=== PATIENT | male | born 1955 | race Caucasian/White ===

== ENCOUNTER → 2025-02-03 07:01 | Outpatient (REF) | payer MEDICARE, OTHER, SELFPAY | LOC: MRI 07:01 | PROVIDERS: ATTENDING PHYSICIAN Nurse Practitioner Family; FAMILY PHYSICIAN Family Medicine | DX: M54.51 Vertebrogenic low back pain (principal); M54.42 Lumbago with sciatica, left side | CPT/HCPCS: 72148 ==

== ENCOUNTER 2025-05-01 09:32 | Emergency (ER) | payer MEDICARE, OTHER, SELFPAY ==
[2025-05-01 09:34] VITALS: BP 183/109
[2025-05-01 10:02] VITALS: BMI 35.0
--- NOTE | 2025-05-01 10:15 | ED.GENMED ---
History of Present Illness
General
Chief Complaint: Musculo-Skeletal Complaint
Source: patient
Exam Limitations: none
Time Seen by Provider: 05/01/25 10:13
Nursing documentation reviewed up to this point in time: agreed with
History of Present Illness
History of Present Illness:
Patient is a 70-year-old male with history of hypertension, hyperlipidemia who presents to the emergency department for evaluation of pain and swelling of right lower extremity. Patient reports dull pain in his posterior thigh/popliteal area over
the past 2 days which seemed to acutely worsen as he stepped off a tractor on Thursday. He now has pain in his posterior thigh radiating down into his right calf. He also noticed swelling of his RLE. Pain exacerbated by both certain movements as
well as weightbearing. He does feel some degree of weakness in his right lower leg.
Patient denies any bony tenderness in right lower extremity. No right knee or right hip pain. He denies any numbness/tingling in right lower extremity. No fevers, chest pain, or shortness of breath.
He has been utilizing a cane at home to assist with weightbearing over the past few days.
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
Past History
Past History
ED Past Medical History: Other (GI bleeding)
Social History
Tobacco: Non-smoker
Personal:
Review of Systems
Review of Systems
Allergies reviewed?: Yes
All Other Systems: ROS reviewed and negative except as documented in HPI and ROS
Phy Exam
Physical Exam
Physical Exam:
Vitals: Hypertensive, otherwise vital signs are stable. Afebrile
General: Patient is well appearing, no acute distress
Skin: Warm and dry, no rashes or lesions
Head: Normocephalic, atraumatic
Throat: Protecting airway
Neck: Normal ROM, no cervical spine tenderness
Cardiac: Regular rate
Pulm: No apparent respiratory distress
Abdomen: Nondistended
Extremities: Mild nonpitting edema of RLE from right knee extending down to right ankle without any area of skin erythema or warmth. No bony tenderness of obvious deformity. Pain w/ flexion and extension of left knee. No obvious effusion of right
knee or joint laxity. There is a palpable mass in right popliteal space without any fluctuance or focal tenderness. RLE neurovascularly intact w/ palpable distal pulses.
Neuro: Grossly intact
Psychiatric: Normal affect.
Course
Orders/Labs/Results
Orders:
Orders
05/01/25 10:37
US Legs, Right [US Periph Venous LOWER Ext RT] Urgent
Comment: hx Manzanares cyst
Reason For Exam: RLE pain/swelling
05/01/25 12:38
Satya Wrap Right-Treatment ONCE
Vital Signs
Initial and Last Documented VS:
Initial Vital Signs
Temp Pulse Resp BP Pulse Ox
98.5 F 68 18 183/109 98
05/01/25 09:34 05/01/25 09:34 05/01/25 09:34 05/01/25 09:34 05/01/25 09:34
Last Documented Vital Signs
Temp Pulse Resp BP Pulse Ox
98.5 F 56 18 165/94 98
05/01/25 09:34 05/01/25 12:19 05/01/25 12:19 05/01/25 12:19 05/01/25 10:48
MDM/Problems Addressed
Differential Diagnosis Includes:
Not limited to: Manzanares's cyst, DVT, hamstring strain, ligamentous injury, etc.
MDM/Problems Addressed:
70-year-old male with gradual onset pain in right thigh extending down to right calf with worsening swelling over the past 2 days. Symptoms did worsen acutely after stepping off of a tractor a few days ago. Pain worse with movement and
weight-bearing. No numbness/ tingling, fevers, chest pain, shortness of breath.
Vitals and physical exam as above.
Non-pitting edema of right lower extremity noted from knee extending down to right ankle. RLE neurovascular intact without obvious deformity or bony tenderness. No erythema, warmth or evidence of cellulitis. Small palpable mass noted in right
popliteal space however nontender.
Differential broad however given palpable mass, suspect possible Manzanares cyst. Other possibilities would be hamstring muscle strain, ligamentous injury. Will rule out DVT with ultrasound. Lower suspicion for infectious process. No bony tenderness to
indicate fracture.
Update: ultrasound without evidence of DVT however does note Manzanares cyst in right popliteal space. This is likely contributing to pain and swelling in RLE. Again � no evidence of associated infection. He may also have sustained a hamstring muscle
stream. However � will advise supportive care, including compression, ice, elevation, tylenol for pain. He has a cane/walker to assist with ambulation. Close return precuations discussed. Patient comfortable with plan he will follow up with PCP.
Chronic conditions affecting care:
Hypertension
Acute Exacerbation and/or Progression of Chronic Illness:
Acutely hypertensive
*Radiology
Radiology exam reviewed: radiology read reviewed
*Pulse Oximetry
SaO2: 98
Oxygen Mode of Delivery: Room air
Patient hypoxic: no
*EKG
Interpreted by ED Provider?: NA
*Wildlife Science Professor Interpretation
Rate: Wildlife Science Professor- N/A
*Critical Care Note
Total Time (30-74mins, 75-104mins- exclusive of procedures): Not Applicable
ED Attending Note
-
Portions of this chart may have been created with voice recognition software.� Occasional wrong word or��sound alike� substitutions may have occurred due to the inherent limitations of voice recognition software.
Discharge Plan
Departure
Patient Disposition: Home (Routine Discharge)
Date of Disposition: 05/01/25
Time of Disposition: 12:38
Patient with high blood pressure during this ER visit?: Yes
Discharge Problem:
Manzanares cyst
Instructions: Manzanares's Cyst (DC)
Prescriptions:
No Action
lorazepam 0.5 MG tablet
0.5 mg PO PRN PRN (Reason: anxiety)
lisinopril 30 MG tablet
30 mg PO HS
naproxen sodium [Aleve] 220 MG tablet
220 mg PO PRN PRN (Reason: pain)
Referrals:
Wanda Leon MD [Family Provider, [facility]] - Follow up in 1 week
Activity Restrictions/Additional Instructions:
RETURN TO THE EMERGENCY DEPARTMENT WITH ANY PERSISTENT/WORSENING PAIN, INCREASING SWELLING OF RIGHT LOWER EXTREMITY, NUMBNESS/TINGLING OR WEAKNESS, FEVER OR ANY SIGNS OF INFECTION, OR ANY OTHER CONCERNS
- As discussed�your ultrasound showed no evidence of a DVT. However�there was noted to be a Manzanares's cyst which is cause of your symptoms today.
- You can keep your right knee wrapped with an Satya bandage. Continue to ice and elevate your right leg. Take Tylenol and/or Motrin as needed for pain. Continue to use cane/walker as needed for ambulation
- Please follow-up with your primary care provider for further evaluation/management and to ensure that your symptoms improve
Monitor your symptoms closely and return to the emergency department with any acute worsening/new symptoms or any other concerns
Interventions
Interventions:
*Risk Screen - Suicide Last Done: 05/01/25 09:34
*General Assessment Last Done: 05/01/25 10:04
*Neglect/Abuse Screening Last Done: 05/01/25 09:34
*ED- Fall Risk Assessment Last Done: 05/01/25 10:02
*ED COVID-19 Vaccine History Last Done: 05/01/25 10:02
*Nursing Disposition Last Done: 05/01/25 12:59
ED-Musculoskeletal Assessment Last Done: 05/01/25 10:04
Discharge Date and Time
Discharge Date/Time: 05/01/25 13:00
Print Language: SAMI
[2025-05-01 10:43] VITALS: BP 164/102
[2025-05-01 12:19] VITALS: BP 165/94
== END 2025-05-01 13:00 | disposition home or self-care (01) ==
LOC: EMR 09:32
PROVIDERS: EMERGENCY PHYSICIAN Emergency Medicine; FAMILY PHYSICIAN Family Medicine
DX: M71.21 Synovial cyst of popliteal space [Baker], right knee (principal); I10 Essential (primary) hypertension; E78.5 Hyperlipidemia, unspecified
CPT/HCPCS: 99284; 93971

== ENCOUNTER 2025-06-26 06:12 | Day surgery (SDC) | payer MEDICARE, OTHER, SELFPAY ==
[2025-06-20 11:02] LABS: Hematocrit 45.2 % (39.0-52.0); Hemoglobin 15.2 g/dL (13.0-18.0); Mean Corp Hgb Conc. 33.6 g/dL (33.0-37.0); Mean Corpuscular Volume 94.4 fL (80.0-94.0); Platelet Count 221 10^3/uL (130-400); Red Cell Dist. Width 13.2 % (11.5-14.5)
[2025-06-20 11:31] LABS: ALT (SGPT) 28 U/L (0-50); AST (SGOT) 24 U/L (17-59); Albumin 4.4 g/dl (3.5-5.0); Alkaline Phosphatase 46 U/L (38-126); Blood Urea Nitrogen 21 mg/dl (9-20); Calcium 9.5 mg/dl (8.4-10.2); Carbon Dioxide 27 mmol/L (22-30); Chloride 107 mmol/L (98-107); Glucose 89 mg/dl (70-99); Potassium 5.4 mmol/L (3.5-5.1); Sodium 140 mmol/L (135-145); Total Protein 7.4 g/dl (6.3-8.2); eGFR > 60.00
[2025-06-20 14:06] VITALS: BMI 36.8
[2025-06-26] VITALS (11 sets, daily range): BP systolic 95–152; BP diastolic 54–94; PULSE 81; O2SAT 98; BMI 36.8
[2025-06-26] MEDS: NORMOSOL-R/PLASMALYTE-A 1000 IV (07:14)
[2025-06-26] MEDS: VANCOCIN 530 MG IV (07:26)
--- NOTE | 2025-06-26 08:58 | W.PN.UPDATE ---
Update Note
Progress Note Update
Lumbar stenosis w/ neurogenic claudication s/p Posterior Lumbar Decompression/L2-L5 Lami w/ Dr Mcclure 06/26/25
DVT prophylaxis - b/l SCDs/TEDs
HTN - + parameters - monitor BP
GERD - add Pepcid HS
Remote diverticulitis w/ associated GI bleed - no NSAIDs
H/o bowel perforation, likely 2* above - Colace/Senna for bowel regimen
- Advised adequate hydration, early mobility as tolerated, and the minimization of opioids post-op
Balance difficulties - on fall precautions
Reported urinary retention w/ opioid use - monitor voids
- Start daily Flomax while admitted
- Bladder scan/straight cath prn
Mild pre-op hyperkalemia - asymptomatic - BMP in AM
HLD
Colon polyps
H/o traumatic L hand injury requiring surgical intervention
Allergic rhinitis
SCC s/p excision
Obesity, BMI 36.8
Pt will need prophylactic Clindamycin upon d/c d/t PCN allergy
--- NOTE | 2025-06-26 10:24 | OR.RPT ---
Operative Report
Operative Report
Date of Surgery: 06/26/2025
SURGEON: Ben Pereira Cha, MD
CHANNEL PROCESS SUPERVISOR: Zuleyma SOUTH is the clinical education assistant for this procedure as no qualified resident or fellow was able to be identified.
PREOPERATIVE DIAGNOSIS:
1. Lumbar spinal stenosis, L2-5.
2. Degenerative disc disease L2-3, L3-4, L4-5.
POSTOPERATIVE DIAGNOSIS:
Same .
NAME OF OPERATION:
1.) Posterior spinal decompression consisting of laminectomy L2, L3, L4, L5 bilateral foraminotomy, L2-3, L3-4, L4-L5
2.) Use of an operating room microscope for microsurgical techniques.
ANESTHESIA: General endotracheal.
ESTIMATED BLOOD LOSS: 100 mL.
DISPOSITION: Stable, extubated to PACU.
INDICATIONS: This patient is a 70 year old male with a long-standing history of neurogenic claudication symptoms. Examination demonstrated inability to stand upright without exacerbation of his leg symptoms upon extension. Imaging demonstrated
multilevel spondylotic changes from L2 to L5 leading to severe lumbar spinal stenosis. He had failed conservative measures of activity modification, oral medications, injection-type therapy, and having subjective, objective and corroborative imaging
evidence of radiculopathy from multilevel spinal stenosis, surgical treatment was offered. The patient understood the benefits, alternatives and risks of the procedure with risks including but not limited to risk of anesthesia, infection, nerve
damage, blood vessel damage, dural tear, blindness, need for further surgery, failure to relieve symptoms, adjacent level problems. He elected to proceed after undergoing preoperative medical clearance.
DESCRIPTION OF PROCEDURE: The patient was identified in the preoperative holding area. The site of surgery and consent verified with the patient. He wasthen brought to the Operating Room by the Anesthesia and Orthopedic Services. General anesthesia
was administered. The patient was intubated without difficulty. VIRA and SCD stockings were placed for mechanical DVT prophylaxis as well as a sterilely inserted Bear catheter. @CAPHE@ was then positioned prone onto a Hemal table with bony
prominences well padded. Abdomen was hanging free. His back was prepped and draped in the usual sterile standard fashion. A hard stop surgical timeout performed with all members of the Operating Room staff, and 2 gram of IV Ancef given prior to
surgical start.
A midline skin incision was then made over the presumed L2, L3 and L4 and L5 level spinous processes down through the skin with a knife Bovie cautery down through the lumbodorsal fascia. Hemostasis was achieved. Deep dissection was taken of the
bilateral hemilamina of the presumed L2 to L5 levels. At this point, intraoperative fluoroscopy was used to confirm exposure of the intended levels. Once this was confirmed, deep self-retraining retractors placed, a microscope brought in and used
for the remainder of the procedure.
Decompression was then started, first by removal of the spinous process of L2, L3 and L4 and L5 with the spinous process cutter. A Leksell rongeur used to thin down the lamina and a 3 mm neural niranjan was then used to thin down the laminae and further
down to the level of the ligamentum flavum from L3 to L4 and L4 to L5. The canal space was entered with a use of a microcurette followed by a #2 and a #3 Kerrison rongeur to perform a central laminectomy was performed from the top of L5 to the
bottom of L3. At this point, bilateral lateral recess decompression was performed at the L2-3, L3-4 and L4-5 levels with a Calpine elevator was used to protect the neural elements at all times. On the right side the L3-4 and L4-5 disc were exposed
and a nerve hook use to palpate the entirety of the disc to ensure no free disc fragments were able to be removed. Following the decompression all nerve roots were noted to be free and mobile with intact dural sac throughout.
The wound was then irrigated with a liter of normal saline. The wound was then closed in a sequential fashion with 0 Vicryl, 2-0 Vicryl, and 3-0 Monocryl for the skin. A dry, sterile dressing was then applied. @CAPHE@ was flipped back over supine on
the hospital table, extubated without difficulty, had purposeful movement of all four extremities prior to leaving the Operating Room.
I attest I was present for and performed all mao and critical aspects of the procedure.
[2025-06-26] MEDS: SUBLIMAZE 50 MCG IV (10:58)
[2025-06-26] MEDS: SUBLIMAZE 25 MCG IV ×2 (11:16→11:24)
[2025-06-26] MEDS: NSS 1000 IV ×2 (12:38→21:25)
[2025-06-26] MEDS: TYLENOL 1000 MG PO (12:41)
--- NOTE | 2025-06-26 12:55 | PTCARENOTE ---
Pt arrived to 2S in bed. Full assessment completed. Pt drowsy, easily arouses to verbal stimuli. Upon initial assessment pt with minimal movement to B/L LEs and loss of sensation to LLE, by the end of this RNs assessment sensation returning to LLE
and pt able to wiggle B/L feet/toes. IVF infusing per order. Back DSG with a small amount of drainage noted around peripheral of telfa pad, edges marked for reference. Pt instructed to ring for assistance with ambulation, verbalized understanding.
Pt asking to propped on side with pillows, log rolling technique and activity restrictions reviewed with pt, pt verbalized understanding. Bed locked and in the lowest position, safety maintained. Oriented to room and call andrade, family at bedside.
--- NOTE | 2025-06-26 14:27 | W.PN.UPDATE ---
Update Note
Progress Note Update
Pt noted to have incisional bleeding post-op.
Dressing to be changed. We will use Tegaderm dressing and gauze.
Will order TXA now, followed by 2 additional dosages given BID.
Pt also complaining of burning pain but reportedly sleeps if undisturbed. Will have Lyrica given later once more awake. Burning believed to be nerve related pain.
Will continue to monitor incisional bleeding and post-op pain throughout his admission.
--- NOTE | 2025-06-26 14:44 | PTCARENOTE ---
Pt DSG noted to be leaking sanguinous drainage, Cristopher Sheppard PA-c made aware and instructed RN to take down DSG and apply gauze and tegederm. Upon DSG removal, a small opening was noted at the top of the incision with blood trickling. Pressure held
with gauze and new DSG applied. Cristopher Sheppard notified of opening and to contact Dr sr. Care remains ongoing.
[2025-06-26] MEDS: MAGNESIUM OXIDE 400 MG PO (14:52)
[2025-06-26] MEDS: CYKLOKAPRON 650 MG PO ×2 (14:53→21:34)
[2025-06-26] MEDS: TYLENOL PO (17:25)
[2025-06-26] MEDS: COLACE 100 MG PO (20:07)
[2025-06-26] MEDS: SENOKOT 17.2 MG PO (20:07)
[2025-06-26] MEDS: VANCOCIN 200 IV (20:07)
[2025-06-26] MEDS: LYRICA 75 MG PO (20:08)
[2025-06-26] MEDS: FLORASTOR 250 MG PO (20:08)
[2025-06-26] MEDS: TUMS CHEWABLE TABLET 200 MG PO ×2 (20:12→21:31)
[2025-06-26] MEDS: ZESTRIL 30 MG PO (21:35)
[2025-06-27 03:00] VITALS: BP 98/61
[2025-06-27] MEDS: TYLENOL PO ×2 (06:21)
[2025-06-27 06:29] LABS: Hematocrit 35.8 % (39.0-52.0); Hemoglobin 12.1 g/dL (13.0-18.0)
[2025-06-27] MEDS: NSS 1000 IV (06:30)
[2025-06-27 06:54] LABS: Blood Urea Nitrogen 18 mg/dl (9-20); Calcium 8.4 mg/dl (8.4-10.2); Carbon Dioxide 24 mmol/L (22-30); Chloride 109 mmol/L (98-107); Estimated Creatinine Clearance 89 ml/min; Glucose 123 mg/dl (70-99); Potassium 4.7 mmol/L (3.5-5.1); Sodium 138 mmol/L (135-145); eGFR > 60.00
[2025-06-27 07:20] VITALS: BP 129/78
[2025-06-27] MEDS: LYRICA PO (07:50)
[2025-06-27] MEDS: TUMS CHEWABLE TABLET PO (07:51)
[2025-06-27] MEDS: COLACE PO (07:51)
[2025-06-27] MEDS: CYKLOKAPRON PO (07:51)
[2025-06-27] MEDS: SENOKOT PO (07:51)
[2025-06-27] MEDS: FLORASTOR PO (07:51)
[2025-06-27] MEDS: MAGNESIUM OXIDE PO (07:51)
--- NOTE | 2025-06-27 07:56 | PTCARENOTE ---
Pt refused all am medications. Education provided, pt continuing to refuse stating ' I'm good, I heal my myself naturally and have been for 71 years ... I meditate and tell myself no pain and have no pain.'
--- NOTE | 2025-06-27 09:19 | CM ---
CM met with patient in room. Patient confirmed demographics. Patient's is available for support post operatively. CM discuss PT facilities post operatively when cleared. Patient stated he will 'decide if he needs it'.
PLAN: Home with family no needs.
[2025-06-27 09:46] VITALS: BP 124/70; PULSE 93
--- NOTE | 2025-06-27 09:51 | W.PN.ORTHO ---
Today's Communication / Plan
-
Await OT recs. Pt did great w/ PT this AM.
D/c later today if remaining clinically stable.
Assessment
.
Distal Motor Intact: Yes
Dressing:
Small area of serosanguineous drainage on left portion of dressing. Much improved since yesterday's dressing change.
Assessment:
Lumbar stenosis w/ neurogenic claudication s/p Posterior Lumbar Decompression/L2-L5 Lami w/ Dr Mcclure 06/26/25
DVT prophylaxis - b/l SCDs/TEDs
Post-op incisional bleeding - bleeding improved w/ TXA yesterday, steri-strips, ABDs, and abdominal binder overnight
HTN - + parameters - BP stable prior to d/c
GERD - added Pepcid HS
Remote diverticulitis w/ associated GI bleed - no NSAIDs
H/o bowel perforation, likely 2* above - Colace/Senna for bowel regimen
- Advised adequate hydration, early mobility as tolerated, and the minimization of opioids post-op
Balance difficulties - on fall precautions
Reported urinary retention w/ opioid use - voiding appropriately prior to d/c
- Pt refused daily Flomax while admitted
- Bladder scan/straight cath prn
Mild pre-op hyperkalemia - asymptomatic - K+ WNL POD 1
HLD
Colon polyps
H/o traumatic L hand injury requiring surgical intervention
Allergic rhinitis
SCC s/p excision
Obesity, BMI 36.8
Pt will need prophylactic Clindamycin upon d/c d/t PCN allergy
Pt refusing all suggested pain meds and bowel regimen prior to d/c. Pt aware of risks of constipation/bowel obstruction/perforation if non-adherent to recommended bowel regimen. For pain, pt is agreeable to Tylenol for mild pain prn and [place] for
mod-severe pain prn upon d/c.
Plan
.
Surgery / Date: Posterior Lumbar Decompression/L2-L5 Lami w/ Dr Lindsey
DVT Prophylaxis: Other (b/l SCDs/TEDs)
Activity:
Out of bed.
PT/OT
Discharge Plan: Home
Subjective
.
.:
Patient resting in bed this AM.
Reports minor back discomfort but is refusing all recommended pain meds. Reports he will 'heal himself'.
Mild nausea w/o vomiting. Tolerated breakfast. Refusing anti-emetics that were offered.
AM labs relatively stable.
Incisional bleeding improved from yesterday.
VERY eager for d/c today.
Vital Signs and Labs
.
Vital Signs and Labs:
Lab Results
06/27/25 06:09
06/27/25 06:09
Temp Pulse Resp BP Pulse Ox
98.2 F 80 16 129/78 96
06/27/25 07:20 06/27/25 07:20 06/27/25 07:20 06/27/25 07:20 06/27/25 07:20
Physical Exam
-
HEENT: No pallor, cyanosis, or jaundice. Throat clear.
NECK: Supple. No JVD.
RESPIRATORY: Lungs clear to auscultation.
CVS: S1, S2 normal. RRR.�
ABDOMEN: Soft, non-tender. No distension. Obese.
EXTREMITIES: Strength equal, no calf pain with palpation/dorsiflexion. Calves soft.
SAWDUST DRIER: AOx3. No focal deficits. donkey doctor grossly intact
--- NOTE | 2025-06-27 10:17 | W.DS.TRANS ---
DC Summary - Manufacturing Operations Manager
-
Discharge Instructions:
Sleep Apnea Risk High
Discharge Diagnosis/Procedures Lumbar stenosis w/ neurogenic claudication s/p
Posterior Lumbar Decompression/L2-L5 Laminectomy
w/ Dr Mcclure 06/26/25
Diet Regular
Additional Diets Adequate hydration and minimize opioids to
prevent low blood pressure/dizziness.
Activity As tolerated
Additional Activity No heavy lifting >10 lbs
Driving Restrictions Not until seen by your Dr
Bathing Restrictions OK to shower in 4 days
Instructions:
Stand-Alone Forms: [facility]bar D/C Inst.
Changes to Home Medications: Yes
Discharge Medications:
DC Medications w/original date entered in NPS
Curcumin 2 dose PO DAILY 06/21/25
Held on 06/27/25. Instructions: Resume on 07/03/25.
calcium carbonate (Tums) 300 mg PO BID 06/21/25
magnesium 200 mg tablet 400 mg PO DAILY 06/21/25
Saccharomyces boulardii 250 mg capsule 250 mg PO BID #10 caps 06/27/25
acetaminophen 325 mg tablet (Tylenol) 650 mg (2 x 325 mg) PO Q6HPRN PRN mild pain #60 tabs 06/27/25
clindamycin HCl 300 mg capsule (Cleocin HCl) 300 mg PO Q6H #20 caps 06/27/25
docusate sodium 100 mg capsule 100 mg PO BID #30 caps 06/27/25
famotidine 20 mg tablet 20 mg PO HS #30 tabs 06/27/25
hydrocodone 5 mg-acetaminophen 325 mg tablet 1 - 2 tab PO Q6H PRN moderate-severe pain #30 tabs 06/27/25
lisinopril 30 mg tablet 30 mg PO HS #1 tab 06/27/25
lorazepam 0.5 mg tablet 0.5 mg PO DAILY PRN anxiety/muscle spasms #1 tab 06/27/25
ondansetron HCl 4 mg tablet 4 mg PO Q6H PRN nausea and vomiting #30 tabs 06/27/25
sennosides 8.6 mg tablet (Laura-randal) 17.2 mg (2 x 8.6 mg) PO BID #30 tabs 06/27/25
Home Medication Changes
Saccharomyces boulardii 250 mg capsule 250 mg PO BID #10 caps 06/27/25
acetaminophen 325 mg tablet (Tylenol) 650 mg (2 x 325 mg) PO Q6HPRN PRN mild pain #60 tabs 06/27/25
clindamycin HCl 300 mg capsule (Cleocin HCl) 300 mg PO Q6H #20 caps 06/27/25
docusate sodium 100 mg capsule 100 mg PO BID #30 caps 06/27/25
famotidine 20 mg tablet 20 mg PO HS #30 tabs 06/27/25
hydrocodone 5 mg-acetaminophen 325 mg tablet 1 - 2 tab PO Q6H PRN moderate-severe pain #30 tabs 06/27/25
lorazepam 0.5 mg tablet 0.5 mg PO DAILY PRN anxiety/muscle spasms #1 tab 06/27/25
ondansetron HCl 4 mg tablet 4 mg PO Q6H PRN nausea and vomiting #30 tabs 06/27/25
sennosides 8.6 mg tablet (Laura-randal) 17.2 mg (2 x 8.6 mg) PO BID #30 tabs 06/27/25
Pending Results: No
[2025-06-27 10:33] VITALS: BP 113/71; PULSE 84; O2SAT 96
== END 2025-06-27 10:59 | disposition home or self-care (01) ==
LOC: SDS 06:12
PROVIDERS: Physician Assistant; ATTENDING PHYSICIAN Orthopaedic Surgery; FAMILY PHYSICIAN Family Medicine
PROC: 01NB0ZZ Release Lumbar Nerve, Open Approach (ICD-10-PCS; 2025-06-26)
PROC: 0SB20ZZ Excision of Lumbar Vertebral Disc, Open Approach (ICD-10-PCS; 2025-06-26)
DX: M48.062 Spinal stenosis, lumbar region with neurogenic claudication (principal); M51.16 Intervertebral disc disorders with radiculopathy, lumbar region; I10 Essential (primary) hypertension; K21.9 Gastro-esophageal reflux disease without esophagitis; E78.5 Hyperlipidemia, unspecified; E87.5 Hyperkalemia; R33.9 Retention of urine, unspecified; F11.90 Opioid use, unspecified, uncomplicated; Z79.899 Other long term (current) drug therapy; L76.22 Postprocedural hemorrhage of skin and subcutaneous tissue following other procedure; Y83.8 Other surgical procedures as the cause of abnormal reaction of the patient, or of later complication, without mention of misadventure at the time of the procedure
CPT/HCPCS: 63047; 63048 ×2; 72100; 76000; 80048; 80053; 85014; 85018; 85027; 86850; 86900; 86901; 87070; 97162; 97166; 97530

== ENCOUNTER 2025-06-28 04:26 | Emergency (ER) | payer MEDICARE, OTHER, SELFPAY ==
[2025-06-28 04:35] VITALS: BP 148/99
[2025-06-28 04:44] VITALS: BMI 35.0
[2025-06-28 05:00] VITALS: BP 114/71
--- NOTE | 2025-06-28 05:07 | ED.GENMED ---
History of Present Illness
<Lidia Keen PA-C - Last Filed: 06/28/25 09:02>
General
Chief Complaint: Abdominal Pain
Source: patient
Exam Limitations: none
Time Seen by Provider: 06/28/25 05:00
Nursing documentation reviewed up to this point in time: agreed with
History of Present Illness
History of Present Illness:
70-year-old male with a past medical history of skin cancer, hypertension, hyperlipidemia, diverticulosis, GI bleeds, spinal stenosis with neurogenic claudication status postlaminectomy who presents to the ER today with concerns of severe abdominal
pain. This lasted around an hour or so. Family reports that patient woke up with the pain and he was complaining of severe excruciating diffuse pain similar to prior episodes of diverticulitis flares. The pain was so severe that he only had an
episode of vomiting. Family members called EMS. While he was in the ER, he had a very large bowel movement and subsequently, all his pain have subsided. Currently patient feels well and is requesting to go home. Family is concerned about
possible developing diverticulitis. Patient denies any dark tarry stools, rectal bleeding, syncopal episodes. He denies any chest pain or shortness of breath. He has some back pain as part of his postsurgical status but denies any urinary or
fecal incontinence, denies any genital paresthesias, denies any inability to ambulate or loss of sensation in his bilateral lower extremities. He denies any fevers. He denies any pelvic pain or burning with urination.
Past History
<Lidia Keen PA-C - Last Filed: 06/28/25 09:02>
Past History
ED Past Medical History: Other (GI bleeding)
Social History
Tobacco: Non-smoker
Personal:
Review of Systems
<Lidia Keen PA-C - Last Filed: 06/28/25 09:02>
Review of Systems
All Other Systems: ROS reviewed and negative except as documented in HPI and ROS
Phy Exam
<Lidia Keen PA-C - Last Filed: 06/28/25 09:02>
Physical Exam
Physical Exam:
General: Patient is well appearing and in no acute distress; non-toxic
Skin: Warm and dry, no rashes or lesions
Head: Normocephalic, atraumatic
Eyes: Sclera non-icteric. EOMs intact.
Cardiac: Regular rate and rhythm, no murmurs
Peripheral Vascular: No lower extremity swelling or edema
Pulm: Normal respiratory effort, no wheezes, rales, rhonchi
Abdomen: No abdominal tenderness to palpation, no palpable masses
Musculoskeletal: Bandage noted over the spinous processes, no purulent drainage, no surrounding erythema
Neuro: CN II-XII intact, no focal neurologic deficits.
Psychiatric: Appropriate mood and affect.
Course
<Lidia Keen PA-C - Last Filed: 06/28/25 09:02>
Orders/Labs/Results
Orders:
Orders
06/28/25 05:31
CT Abd/pelvis W Iv Cont Urgent
Comment:
Reason For Exam: LLQ pain
06/28/25 05:41
Complete Blood Count/With Diff Urgent
Comprehensive Metabolic Panel Urgent
Lipase Urgent
06/28/25 07:04
Clindamycin HCl [Cleocin] 300 mg PO NOW STA
06/28/25 07:39
Acetaminophen [Tylenol] 1,000 mg PO NOW STA
06/28/25 07:51
Urinalysis Reflex To Culture Urgent
Date Specimen was Collected: 06/28/25
Time Specimen was Collected: 07:47
Abnormal Lab Results
06/28/25
05:41
WBC 13.7 H 10^3/uL
(4.8-10.8)
RBC 3.89 L 10^6/uL
(4.70-6.10)
Hgb 12.2 L g/dL
(13.0-18.0)
Hct 36.4 L %
(39.0-52.0)
MCH 31.4 H pg
(27.0-31.0)
Abs Immat Gran (auto) 0.1 H 10^3/uL
(0-0.05)
Absolute Neuts (auto) 11.3 H 10^3/uL
(1.4-6.5)
Absolute Lymphs (auto) 1.0 L 10^3/uL
(1.2-3.4)
Absolute Monos (auto) 1.3 H 10^3/uL
(0.1-0.6)
Neutrophils % 82.3 H %
(42.2-75.2)
Lymphocytes % 7.6 L %
(20.5-51.1)
Glucose 115 H mg/dl
(70-99)
06/28/25 05:41
06/28/25 05:41
Vital Signs
Initial and Last Documented VS:
Initial Vital Signs
Temp Pulse Resp BP Pulse Ox
97.8 F 82 14 148/99 98
06/28/25 04:35 06/28/25 04:35 06/28/25 04:35 06/28/25 04:35 06/28/25 04:35
Last Documented Vital Signs
Temp Pulse Resp BP Pulse Ox
97.8 F 74 14 115/67 97
06/28/25 04:35 06/28/25 04:35 06/28/25 04:35 06/28/25 08:00 06/28/25 08:15
Heidelt;Doris Rolon PA-C - Last Filed: 06/28/25 09:43>
Orders/Labs/Results
Orders:
Orders
06/28/25 05:31
CT Abd/pelvis W Iv Cont Urgent
Comment:
Reason For Exam: LLQ pain
06/28/25 05:41
Complete Blood Count/With Diff Urgent
Comprehensive Metabolic Panel Urgent
Lipase Urgent
06/28/25 07:04
Clindamycin HCl [Cleocin] 300 mg PO NOW STA
06/28/25 07:39
Acetaminophen [Tylenol] 1,000 mg PO NOW STA
06/28/25 07:51
Urinalysis Reflex To Culture Urgent
Date Specimen was Collected: 06/28/25
Time Specimen was Collected: 07:47
Abnormal Lab Results
06/28/25
05:41
WBC 13.7 H 10^3/uL
(4.8-10.8)
RBC 3.89 L 10^6/uL
(4.70-6.10)
Hgb 12.2 L g/dL
(13.0-18.0)
Hct 36.4 L %
(39.0-52.0)
MCH 31.4 H pg
(27.0-31.0)
Abs Immat Gran (auto) 0.1 H 10^3/uL
(0-0.05)
Absolute Neuts (auto) 11.3 H 10^3/uL
(1.4-6.5)
Absolute Lymphs (auto) 1.0 L 10^3/uL
(1.2-3.4)
Absolute Monos (auto) 1.3 H 10^3/uL
(0.1-0.6)
Neutrophils % 82.3 H %
(42.2-75.2)
Lymphocytes % 7.6 L %
(20.5-51.1)
Glucose 115 H mg/dl
(70-99)
06/28/25 05:41
06/28/25 05:41
Vital Signs
Initial and Last Documented VS:
Initial Vital Signs
Temp Pulse Resp BP Pulse Ox
97.8 F 82 14 148/99 98
06/28/25 04:35 06/28/25 04:35 06/28/25 04:35 06/28/25 04:35 06/28/25 04:35
Last Documented Vital Signs
Temp Pulse Resp BP Pulse Ox
97.8 F 74 14 115/67 97
06/28/25 04:35 06/28/25 04:35 06/28/25 04:35 06/28/25 08:00 06/28/25 08:15
<Lidia Keen PA-C - Last Filed: 06/28/25 09:02>
MDM/Problems Addressed
Differential Diagnosis Includes:
ddx include diverticulitis, constipation, small bowel obstruction, GERD,
MDM/Problems Addressed:
70-year-old male with a past medical history of skin cancer, hypertension, hyperlipidemia, diverticulosis, GI bleeds, spinal stenosis with neurogenic claudication status postlaminectomy who presents to the ER today with concerns of severe abdominal
pain. This lasted around an hour or so. It completely resided with a full bowel movement in the ER. On physical exam he is well-appearing and in no acute distress. He has no palpable abdominal tenderness to palpation, labs reviewed, mild
leukocytosis noted, likely representing postsurgical status. Hemoglobin at baseline. CMP unremarkable. Urinalysis negative. Case signed out to Doris TILLMAN pending CT scan read. I anticipate discharge.
<Lidia Keen PA-C - Last Filed: 06/28/25 09:02>
*Pulse Oximetry
SaO2: 96
Oxygen Mode of Delivery: Room air
Patient hypoxic: no
*Critical Care Note
Total Time (30-74mins, 75-104mins- exclusive of procedures): Not Applicable
<Doris Rolon PA-C - Last Filed: 06/28/25 09:43>
Update Note
Update Note:
I assumed care of patient awaiting CT results. Imaging shows a bubble of air within the urinary bladder which is most likely secondary to Bear catheter during his surgery 2 days ago. UA was checked for completeness which is normal. No evidence
of diverticulitis on imaging. Suspect pain was related to postoperative constipation. He is feeling improved since arriving to the ED. He is stable for discharge and was advised to follow-up with his PCP and surgeon.
ED Attending Note
<Lidia Keen PA-C - Last Filed: 06/28/25 09:02>
-
Portions of this chart may have been created with voice recognition software.� Occasional wrong word or��sound alike� substitutions may have occurred due to the inherent limitations of voice recognition software.
Discharge Plan
Departure
Patient Disposition: Home (Routine Discharge)
Date of Disposition: 06/28/25
Time of Disposition: 08:11
Patient with high blood pressure during this ER visit?: No
Discharge Problem:
Lower abdominal pain
Instructions: Abdominal pain in adults (DC)
Prescriptions:
No Action
Tums 300 mg (750 mg) Tablet,Chewable
300 mg PO BID
magnesium 200 mg Tablet
400 mg PO DAILY
Curcumin
2 dose PO DAILY
docusate sodium 100 mg Capsule
100 mg PO BID Qty: 30 0RF
Rx Instructions:
Take twice a day while on narcotic pain meds.
Saccharomyces boulardii 250 mg Capsule
250 mg PO BID Qty: 10 0RF
Rx Instructions:
Over the counter. Take while on antibiotic.
If unavailable, choose a different probiotic.
famotidine 20 mg Tablet
20 mg PO HS Qty: 30 0RF
Rx Instructions:
Take nightly while on post-surgical pain meds to reduce GI upset.
lorazepam 0.5 mg Tablet
0.5 mg PO DAILY PRN (Reason: anxiety/muscle spasms) Qty: 1 0RF
sennosides [Laura-randal] 8.6 mg Tablet
17.2 mg PO BID Qty: 30 0RF
Rx Instructions:
Take twice a day while on post-surgical narcotics.
ondansetron HCl 4 mg tablet
4 mg PO Q6H PRN (Reason: nausea and vomiting) Qty: 30 0RF
clindamycin HCl [Cleocin HCl] 300 mg capsule
300 mg PO Q6H Qty: 20 0RF
hydrocodone-acetaminophen 5-325 mg tablet
1 - 2 tab PO Q6H PRN (Reason: moderate-severe pain) Qty: 30 0RF
Rx Instructions:
1 tab for moderate pain, 2 if severe.
Dx lami
acetaminophen [Tylenol] 325 mg Tablet
650 mg PO Q6HPRN PRN (Reason: mild pain) Qty: 60 0RF
Rx Instructions:
DO NOT exceed >3000 mg daily while on [place].
1 [place] tab = 325 mg of Tylenol.
lisinopril 30 MG tablet
30 mg PO HS Qty: 1 0RF
Rx Instructions:
HOLD IF systolic blood pressure <130 while on post-surgical narcotics.
Referrals:
Wanda Leon MD [Family Provider, Family Practice]
Activity Restrictions/Additional Instructions:
Continue taking Dulcolax as needed for constipation.
Please follow-up with your family doctor and your surgeon. Return to the ER with any new or worsening symptoms including fevers.
Interventions
Interventions:
*Risk Screen - Suicide Last Done: 06/28/25 04:35
*General Assessment Last Done: 06/28/25 04:35
*Neglect/Abuse Screening Last Done: 06/28/25 04:35
*ED- Fall Risk Assessment Last Done: 06/28/25 04:44
*ED COVID-19 Vaccine History Last Done: 06/28/25 04:44
*ED Influenza Vaccine History Last Done: 06/28/25 04:44
*Nursing Disposition Last Done: 06/28/25 08:23
YR-Gbvqtq-Yycyogdvtx Assessment Last Done: 06/28/25 04:52
Discharge Date and Time
Discharge Date/Time: 06/28/25 08:23
Print Language: DANISH
[2025-06-28 05:56] LABS: Hematocrit 36.4 % (39.0-52.0); Hemoglobin 12.2 g/dL (13.0-18.0); Mean Corp Hgb Conc. 33.5 g/dL (33.0-37.0); Mean Corpuscular Volume 93.6 fL (80.0-94.0); Nucleated Red Blood Cells % 0 % (-); Platelet Count 187 10^3/uL (130-400); Red Cell Dist. Width 13.6 % (11.5-14.5)
[2025-06-28 06:00] VITALS: BP 121/93
[2025-06-28 06:22] LABS: ALT (SGPT) 24 U/L (0-50); AST (SGOT) 31 U/L (17-59); Albumin 4.0 g/dl (3.5-5.0); Alkaline Phosphatase 47 U/L (38-126); Blood Urea Nitrogen 20 mg/dl (9-20); Calcium 8.8 mg/dl (8.4-10.2); Carbon Dioxide 25 mmol/L (22-30); Chloride 107 mmol/L (98-107); Estimated Creatinine Clearance 78 ml/min; Glucose 115 mg/dl (70-99); Lipase 216 U/L (23-300); Potassium 4.0 mmol/L (3.5-5.1); Sodium 135 mmol/L (135-145); Total Protein 6.6 g/dl (6.3-8.2); eGFR > 60.00
[2025-06-28 07:00] VITALS: BP 128/104
[2025-06-28] MEDS: TYLENOL 1000 MG PO (07:44)
[2025-06-28] MEDS: CLEOCIN 300 MG PO (07:45)
[2025-06-28 08:00] VITALS: BP 115/67
[2025-06-28 08:07] LABS: Urine Character Clear (Clear)
== END 2025-06-28 08:23 | disposition home or self-care (01) ==
LOC: EMR 04:26
PROVIDERS: Physician Assistant; EMERGENCY PHYSICIAN Student in an Organized Health Care Education/Training Program; FAMILY PHYSICIAN Family Medicine
DX: R10.32 Left lower quadrant pain (principal); I10 Essential (primary) hypertension; E78.5 Hyperlipidemia, unspecified; M48.062 Spinal stenosis, lumbar region with neurogenic claudication; Z85.828 Personal history of other malignant neoplasm of skin
CPT/HCPCS: 99284; 74177; 80053; 81003; 83690; 85025; Q9967

== ENCOUNTER 2025-07-10 13:43 | Inpatient (IN) | payer MEDICARE, OTHER, SELFPAY ==
[2025-07-09] VITALS (10 sets, daily range): BP systolic 101–150; BP diastolic 61–94; BMI 35.9
--- NOTE | 2025-07-09 09:28 | ED.CVA ---
History of Present Illness
General
Chief Complaint: CVA/TIA Symptoms
Time Seen by Provider: 07/09/25 09:28
Onset of Stroke Symptoms
Onset of symptoms known: Yes
Date of onset of symptoms: 07/08/25
Time pt last seen normal is known: Yes
Date last time pt seen normal: 07/08/25
History of Present Illness
History of Present Illness:
FOCUSED PAST MEDICAL HISTORY
- High blood pressure, hyperlipidemia
REVIEW OF OLD RECORDS
- The patient was admitted with lumbar stenosis and posterior spinal decompression with laminectomy and foraminotomy with Dr. Mcclure 2 weeks ago
Note:
CHIEF COMPLAINT(S)
Weakness in left arm and facial numbness.
HISTORY OF PRESENT ILLNESS
The patient is a 70-year-old male who began experiencing neurological symptoms starting at approximately 9:00 PM last night. Initially, he noticed a peculiar sensation deb to 'blowing air' on his left cheek, describing it as similar to the
sensation following novocaine administration. Subsequently, he observed weakness in his left arm, describing issues with movement, requiring observation to initiate action. The patient did not report any issues with his left leg, despite a recent
spinal surgery performed by Dr. Mauro. He also noted that his speech sounded altered to him, deb to speaking after a dental procedure involving novocaine. During examination, the patient exhibited weakness on the left side of his face and a
diminished sensation near the ear. Neurological assessments revealed 3/5 strength in the left upper extremity and 4+/5 in the left lower extremity, with minimal dysarthria.
PAST MEDICAL AND SURGICAL HISTORY
Recent spinal surgery performed on the of the previous month.
EXTERNAL RECORDS REVIEWED
Reviewed recent surgical records from Dr. Mauro regarding the spinal surgery.
SOCIAL DETERMINANTS AFFECTING HEALTH
Patient reported taking four baby aspirin as advised by a student services representative due to potential stroke concerns.
ALLERGIES
No known allergies to iodine or contrast agents.
MEDICATIONS
The patient is currently taking baby aspirin as a preventive measure against stroke manifestations as advised by his student services representative.
PHYSICAL EXAM
General: Alert, no acute distress but intermittently appears worried about his strength in the left side
Skin: Warm, dry.
Head: Normocephalic, atraumatic.
Neck: Supple, trachea midline.
Eye Ears, nose, mouth, and throat: Mild left facial droop; oral mucosa moist.
Cardiovascular: Normal peripheral perfusion, no edema.
Respiratory: Respirations are non-labored.
Gastrointestinal: Abdomen nondistended.
Back: Normal range of motion, normal alignment.
Musculoskeletal: Strength 3/5 in the left upper extremity, 4+/5 in the left lower extremity.
Neurological: Alert and oriented to person, place, time, and situation; patient demonstrated facial weakness on the left side with some questionable dysarthria. Some mild sensory deficits to the left side of the face closer to the ear, no definite
ataxia
Psychiatric: Cooperative, appropriate mood & affect but appears nervous at times.
PROBLEM LIST
Acute:
- Suspected stroke with left-sided weakness and facial numbness.
Chronic:
- Requires further investigation for cardiovascular health concerns related to chronic stroke risk.
PLAN
Given the concern for a stroke, a CT scan has been ordered for immediate evaluation. Neurology consultation requested for further management. Instructed not to take any more aspirin until further notice from a specialist.
DIFFERENTIAL DIAGNOSIS
The Differential Diagnosis includes, in no particular order and is not limited to:
- Ischemic stroke
- Transient ischemic attack
- [place] palsy
- Intracranial hemorrhage
- Brain tumor
- Multiple sclerosis
- Peripheral nerve pathology
- Hypoglycemia
- Hypertensive emergency
- Migraine with aura
SUMMARY OF ENCOUNTER
The patient, a 70-year-old male, presented to the emergency department with symptoms suggestive of a potential stroke, characterized by weakness in the left arm and facial numbness that began the previous night. Following an examination, the patient
exhibited a stroke scale of seven. Management in the emergency department included ordering a CT scan and consultation with neurology.
DISPOSITION
The patient will be admitted to the hospital for further stroke evaluation.
ASSESSMENT
Suspected acute ischemic stroke resulting in left-sided weakness and facial numbness.
MANAGEMENT OF THE PATIENTS CARE WAS DISCUSSED WITH
The patient was evaluated by the neurology team while in the emergency department.
PLAN
Admit the patient to the hospital for further stroke evaluation and comprehensive management.
INDEPENDENT REVIEW OF LABS AND INTERPRETATION OF TESTS
My independent interpretation of the CT scan, including CTA of the head and neck and CT perfusion, is unremarkable.
PATIENT EDUCATION AND COUNSELING
The patient was educated about the potential diagnosis of stroke, the need for further evaluation, and the importance of timely treatment to optimize outcomes.
MEDICATION RECONCILIATION
The patient was instructed to discontinue baby aspirin until further notice from a specialist.
MEDICAL DECISION MAKING
-Complexity of Data Reviewed: Chronic conditions affecting care include recent spinal surgery and guidance from a student services representative regarding stroke prevention. Differential diagnosis includes ischemic stroke, transient ischemic attack, and other
neurological conditions.
-Data:
Category 1
My independent interpretation of CT head/neck and CT perfusion scans was performed, revealing unremarkable results.
Category 2
External records reviewed: Recent surgical records from Dr. Mauro regarding spinal surgery.
Category 3
Discussion of management with the neurology team regarding further stroke evaluation and care.
Care significantly affected by Social Determinants of Health: The patient reported taking four baby aspirin daily based on recommendations from a student services representative for potential stroke concerns.
DIAGNOSIS
Suspected acute ischemic stroke, ICD-10: I63.9.
RADIOLOGY
- CT head shows no acute abnormality; no LVO; normal perfusion study
EKG
- Sinus 74, normal axis, no acute ST abnormality
LABS
- Glucose 140, otherwise labs unremarkable
UPDATE
- Stroke alert was called shortly after my initial evaluation at approximately 9:35 AM, I also notified Dr. Cooper who will evaluate the patient and patient went to CT at approximately 9:39 AM
Past History
Past History
ED Past Medical History: Other (GI bleeding)
Social History
Tobacco: Non-smoker
Personal:
Phy Exam
Physical Exam
Physical Exam:
See HPI
Scores
NIH Stroke Score
Level of Consciousness: 0 - Alert
LOC Questions: 0-Answers both correctly
LOC Commands: 0-Performs both correctly
Best Horizontal Gaze: 0-Normal
Visual Ramirez: 0=Normal, no visual loss
Facial Palsy: 2=Partial paralysis
Motor - Right Arm: 0=No drift 10 seconds
Motor - Left Arm: 2=Partial vs. gravity
Motor - Right Le-No drift 5 seconds
Motor - Left Le-Drift < 5 seconds
Limb Ataxia: 0-Absent
Sensation: 1-Mild loss
Best Language: 0-No aphasia
Dysarthria: 1-Mild slurring
Extinction and Inattention: 0-No abnormality
NIH Total Score:: 7
Course
Orders/Labs/Results
Orders:
Orders
07/09/25 09:[address] BRAIN PERF STROKE ALERT Urgent
Comment:
Reason For Exam: intermittent L weak 12hrs
CT HEAD STROKE ALERT W/o Cont Urgent
Comment:
Reason For Exam: intermittent L weak 12hrs
CT HEAD/NECK ANG STROKE ALERT Urgent
Comment:
Reason For Exam: intermittent L weak 12hrs
07/09/25 09:38
Electrocardiogram (*1) Urgent
Reason for Study: TIA/Stroke
EKG- Treatment ONCE
07/09/25 09:39
Complete Blood Count/With Diff Urgent
Comprehensive Metabolic Panel Urgent
07/09/25 09:42
Speech Screening from Bran Routine
07/09/25 09:58
Bedside Glucose- Treatment ONCE
07/09/25 11:00
Add On- LAB Routine
Tests Added?: HbA1C, B12
07/10/25 06:00
Lipid Profile [Cardiovascular Evaluation] IN AM
Abnormal Lab Results
07/09/25 07/09/25
09:32 09:39
RBC 4.35 L 10^6/uL
(4.70-6.10)
MCV 94.7 H fL
(80.0-94.0)
MCHC 32.5 L g/dL
(33.0-37.0)
Glucose 140 H mg/dl
(70-99)
POC Glucose 156 H mg/dl
(70-99)
07/09/25 09:39
07/09/25 09:39
Vital Signs
Initial and Last Documented VS:
Initial Vital Signs
Temp Pulse Resp BP Pulse Ox
36.7 C 77 16 108/79 98
07/09/25 09:22 07/09/25 09:22 07/09/25 09:22 07/09/25 09:22 07/09/25 09:22
Last Documented Vital Signs
Temp Pulse Resp BP Pulse Ox
36.7 C 82 20 150/89 98
07/09/25 09:22 07/09/25 09:37 07/09/25 09:37 07/09/25 09:35 07/09/25 09:37
*Pulse Oximetry
SaO2: 98
Oxygen Mode of Delivery: Room air
Patient hypoxic: no
*Critical Care Note
Total Time (30-74mins, 75-104mins- exclusive of procedures): Not Applicable
ED Attending Note
-
Portions of this chart may have been created with voice recognition software.� Occasional wrong word or��sound alike� substitutions may have occurred due to the inherent limitations of voice recognition software.
Discharge Plan
Departure
Patient Disposition: Admit
Date of Disposition: 07/09/25
Time of Disposition: 10:41
Presentation/result/management discussed w/ accepting MD/DO: Hospitalist
Discharge Problem:
Acute cerebrovascular accident (CVA)
Prescriptions:
No Action
Tums 300 mg (750 mg) Tablet,Chewable
300 mg PO BID
Curcumin
2 dose PO DAILY
hydrocodone-acetaminophen 5-325 mg tablet
1 - 2 tab PO Q6H PRN (Reason: moderate-severe pain) Qty: 30 0RF
Rx Instructions:
1 tab for moderate pain, 2 if severe.
Dx lami
acetaminophen [Tylenol] 325 mg Tablet
650 mg PO Q6HPRN PRN (Reason: mild pain) Qty: 60 0RF
Rx Instructions:
DO NOT exceed >3000 mg daily while on [place].
1 [place] tab = 325 mg of Tylenol.
lisinopril 30 MG tablet
30 mg PO HS Qty: 1 0RF
Rx Instructions:
HOLD IF systolic blood pressure <130 while on post-surgical narcotics.
Referrals:
Wanda Leon MD [Family Provider, Family Practice]
Interventions
Interventions:
*Risk Screen - Suicide Last Done: 07/09/25 09:22
*General Assessment Last Done: 07/09/25 10:03
*Neglect/Abuse Screening Last Done: 07/09/25 09:22
*ED- Fall Risk Assessment Last Done: 07/09/25 10:03
*ED COVID-19 Vaccine History Last Done: 07/09/25 10:03
*ED Influenza Vaccine History Last Done: 07/09/25 10:03
ED- Neurological Assessment Last Done: 07/09/25 09:36
ED Swallowing Screen Last Done: 07/09/25 10:05
Discharge Date and Time
Print Language: THAI
[2025-07-09 09:33] LABS: Glucose - Point of Care 156 mg/dl (70-99)
[2025-07-09 09:55] LABS: Hematocrit 41.2 % (39.0-52.0); Hemoglobin 13.4 g/dL (13.0-18.0); Mean Corp Hgb Conc. 32.5 g/dL (33.0-37.0); Mean Corpuscular Volume 94.7 fL (80.0-94.0); Nucleated Red Blood Cells % 0 % (-); Platelet Count 291 10^3/uL (130-400); Red Cell Dist. Width 13.3 % (11.5-14.5)
[2025-07-09 10:11] LABS: ALT (SGPT) 22 U/L (0-50); AST (SGOT) 21 U/L (17-59); Albumin 4.3 g/dl (3.5-5.0); Alkaline Phosphatase 54 U/L (38-126); Blood Urea Nitrogen 20 mg/dl (9-20); Calcium 10.1 mg/dl (8.4-10.2); Carbon Dioxide 28 mmol/L (22-30); Chloride 103 mmol/L (98-107); Estimated Creatinine Clearance 66 ml/min; Glucose 140 mg/dl (70-99); Potassium 4.2 mmol/L (3.5-5.1); Sodium 137 mmol/L (135-145); Total Protein 7.2 g/dl (6.3-8.2); eGFR > 60.00
--- NOTE | 2025-07-09 10:54 | HPS.HSE ---
Family Physician
-
Family Physician: Wanda Leon MD
Chief Complaint
-
Weakness in the left arm and patient numbness
History of Present Illness
70-year-old has been experiencing symptoms since 9 PM last night. He felt that he had some altered sensation on the left side of the face felt like Novocain administration. Also had some weakness in the left arm. No weakness in the left leg
speech was also slightly altered in his observation
Medical History
Past Medical History
Past Medical History: Reports Other
Additional Past Medical History:
Difficulty with balance,, Hypertension, hyperlipidemia, diverticulosis, GERD, arthritis
Past Surgical History: Reports Other
Additional Past Surgical History:
Knee arthroscopy, skin cancer in the left cheek and left shoulder-surgery, hernia repair, left hand surgeries, colonoscopy, L3-L5 laminectomy
Social History
Tobacco: Non-smoker
Alcohol: None
Drug: None
Personal:
Living: With Family
Employment: Retired (marine guard)
Family History
Family History: Cancer (mom liver ca) and Diabetes (dad)
Allergies / Home Medications
Allergies reflects when Allergies were last updated in [facility] [employer].
Home Medications with original date entered in [facility]
Allergy/Medication List:
Allergies
Allergy/AdvReac Type Severity Reaction Status Date / Time
ibuprofen Allergy Severe Unknown Verified 06/28/25 04:33
cephalexin Allergy Unknown Verified 06/28/25 04:33
Cephalosporins Allergy Anaphylaxis Verified 06/28/25 04:33
penicillin G Allergy Anaphylaxis Verified 06/28/25 04:33
Penicillins Allergy Anaphylaxis Verified 06/28/25 04:33
Sulfa (Sulfonamide Allergy Unknown Verified 06/28/25 04:33
Antibiotics)
sulfamethoxazole Allergy Unknown Verified 06/28/25 04:33
trimethoprim Allergy Unknown Verified 06/28/25 04:33
hydromorphone (From Dilaudid) AdvReac unable to Verified 06/28/25 04:33
breathe
Home Medications
Curcumin 2 dose PO DAILY 06/21/25
Held on 06/27/25. Instructions: Resume on 07/03/25.
calcium carbonate (Tums) 300 mg PO BID 06/21/25
acetaminophen 325 mg tablet (Tylenol) 650 mg (2 x 325 mg) PO Q6HPRN PRN mild pain #60 tabs 06/27/25
hydrocodone 5 mg-acetaminophen 325 mg tablet 1 - 2 tab PO Q6H PRN moderate-severe pain #30 tabs 06/27/25
lisinopril 30 mg tablet 30 mg PO HS #1 tab 06/27/25
Review of Systems
-
A 12 point ROS was completed and negative except as noted: Yes
Cardiac: Denies Chest Pain
Abdomen/GI: Denies Abdominal Pain
Neurological: Reports Numbness; Denies Headache or Weakness
Physical Exam
Vital Signs
Vital Signs
Temp Pulse Resp BP Pulse Ox
98.0 F 82 20 150/89 98
07/09/25 09:22 07/09/25 09:37 07/09/25 09:37 07/09/25 09:35 07/09/25 09:37
Physical Exam
General: Comfortable and Conversant
Respiratory: Clear
Cardiac: S1/S2 and Regular Rhythm
GI: Soft, Non Tender and Normal Bowel Sounds
Neuro: Awake, Alert, Oriented and DTR's Intact & Symmetrical; No No Motor Deficits (mild pronator drift on the left arm), Cranial Nerves Intact (left facial droop) or No Sensory Deficits (mild sensory loss face )
Psych: Intact Judgment/Insight
Laboratory Results
-
07/09/25 09:39
07/09/25 09:39
Laboratory Results
Total Bilirubin 0.9 mg/dl (0.2-1.3) 07/09/25 09:39
AST 21 U/L (17-59) 07/09/25 09:39
ALT 22 U/L (0-50) 07/09/25 09:39
Alkaline Phosphatase 54 U/L (38-126) 07/09/25 09:39
Impression/Plan
-
IMPRESSION/PLAN:
CTA head and neck-calcification of the carotid bulbs and proximal internal carotid arteries bilaterally. On the right 44%. On the left 14% although subjectively appears slightly greater with. No hemodynamically significant stenosis. Normal
appearance of anterior cerebral and middle cerebral arteries. Mild focal narrowing of the P1 and P2 portions of the right CERAMIC DESIGN ENGINEER. No narrowing of the left CERAMIC DESIGN ENGINEER.
EKG-sinus rhythm no ischemia
# CVA symptoms
Exam shows left pronator drift, left facial droop
Admitted to observation
Neurochecks, NIH scale
PT OT evaluation
Neurology evaluation
MRI of the brain, echo ordered
Aspirin ,if patient has CVA will need statin
Check hemoglobin A1c and lipid panel
# Hypertension-hold lisinopril for permissive hypertension in case of a CVA
# GERD-not on medicines
#-Diverticulosis
# Balance problems/uses a cane-history of L3-L4 laminectomies
# DVT prophylaxis-Lovenox
# CODE STATUS-full code
Part of this note was created using voice recognition system. Occasional wrong word or��sound alike� substitutions may have inadvertently occurred due to the inherent limitations of voice recognition software. If noted kindly bring it to my
attention for correction.
[2025-07-09 12:46] LABS: Vitamin B12 327 pg/ml (239-931)
[2025-07-09 13:30] LABS: Glycohemoglobin (HgbA1c) 5.9 % (4.0-5.9)
--- NOTE | 2025-07-09 14:34 | EDCM ---
CM received consult, reviewed chart and met with pt bedside in ED. Lives with his in 2 story home, no RYLIE. Has first floor set up.
Pt had back surgery 2 weeks ago, needs assistance with ADLs, independent in personal care. Ambulating with rolling walker.
Confirms prescription coverage.
LOUIE reviewed and signed.
No hx VN or SNF.
PCP: Wanda Leon
Pharmacy: [facility]
Anticipate discharge home, CM will continue to follow for any discharge planning needs.
--- NOTE | 2025-07-09 15:43 | PTOTSP ---
Speech Therapy Evaluation:
Pt with acute risk factor for dysphagia including concern for acute CVA. Pt with L facial/labial weakness, however oropharyngeal swallow appeared WFL. No overt s/sx of aspiration across trials. No chest imaging completed thus far, however pt passed
3oz swallow screen, WBC WNL, pt on room air, and is afebrile.
Recommend:
1. Regular solids and thin liquids
2. Medications as tolerated
3. General aspiration precautions
4. ESTABLISHMENT GUIDE to follow to monitor tolerance of diet and determine if pt would benefit from further language/cognitive testing
--- NOTE | 2025-07-09 16:58 | CON.NEURO4 ---
Consultation - Neurology 4
-
CONSULTING PHYSICIAN: Dr. Dalton Cooper
REFERRING PHYSICIAN: Magdalena Post
DICTATED BY: Dr. Dalton Cooper
DATE/TIME OF REQUEST: 07/09/2025
DATE/TIME OF CONSULTATION: 07/09/2025
Reason for Consultation: Left-sided weakness
ASSESSMENT AND PLAN:
The patient is a 70 years old male who at around 9 PM yesterday felt left-sided weakness along with loss of sensation in the left side of the face. He also felt that his speech was altered and he also had some weakness of the left side of the face.
The patient had a recent spinal surgery done on June,. The last known well time was 9 PM last night. The patient woke up with the symptoms and later presented to the hospital.
The CT of the head did not show an acute intracranial abnormality.
The CTA of the head and neck did not show large vessel occlusion.
MRI without contrast
echocardiogram.
The patient appears to have a right hemispheric stroke and the NIHSS = 4. The etiology appears to be secondary to a small vessel disease. The patient was not a candidate for intravenous thrombolytic therapy because he was out of the time window
and also had a recent major surgery. He is going to be on the stroke pathway on aspirin 81 mg daily, Plavix 75 mg daily and atorvastatin 40 mg daily. The plan is to get MRI of the brain without contrast and an echocardiogram.
History of Present Illness:
The patient is a 70 years old male who at around 9 PM yesterday felt left-sided weakness along with loss of sensation in the left side of the face. He also felt that his speech was altered and he also had some weakness of the left side of the face.
The patient had a recent spinal surgery done on June,. The last known well time was 9 PM last night. The patient woke up with the symptoms and later presented to the hospital.
Past Medical History: Hypertension, hyperlipidemia, GERD and arthritis.
Review of Systems:
The patient denies headache, dizziness, chest pain, shortness of breath, fever, chills, nausea and vomiting.
Neurologic Examination:
Alert and oriented x 3.
The patient has mild dysarthria.
The cranial nerves II to XII grossly intact aside from a left-sided facial droop.
The strength is grossly 4/5 in the left upper and lower extremities and the strength is grossly 5/5 in the right upper and lower extremities.
Sensations are grossly intact.
The cerebellar examination does not show limb ataxia.
NIHSS = 4.
=
--- NOTE | 2025-07-09 17:00 | PTCARENOTE ---
Recieved pt into 404-1 with stroke symptoms. NIHSS 2, pt reports no change in symptoms. Assessment as documentated, pt oriented to room, all questions answered, call andrade within reach.
[2025-07-09] MEDS: LOVENOX 40 MG SC (17:52)
--- NOTE | 2025-07-09 20:00 | PTCARENOTE ---
Pts notified RN that 'pt was choking on his water X2 episodes', pt also stating to RN that 'i was having difficulty eating d/t decreased sensation on L sd of tongue'. Pt made NPO until seen by speech.
[2025-07-10 03:38] VITALS: BP 112/66
[2025-07-10 07:11] LABS: Blood Urea Nitrogen 18 mg/dl (9-20); Calcium 9.3 mg/dl (8.4-10.2); Carbon Dioxide 28 mmol/L (22-30); Chloride 103 mmol/L (98-107); Estimated Creatinine Clearance 72 ml/min; Glucose 91 mg/dl (70-99); HDL Cholesterol 45 mg/dl; LDL Cholesterol, Calculated 149 mg/dl; Magnesium 1.9 mg/dl (1.6-2.3); Potassium 4.2 mmol/L (3.5-5.1); Sodium 136 mmol/L (135-145); Very Low Density Lipoprotein 22 mg/dl (0-30); eGFR > 60.00
[2025-07-10 07:20] VITALS: BP 158/101
--- NOTE | 2025-07-10 07:31 | W.PN.HOSP.TC ---
Addendum entered and electronically signed by Magdalena Post MD 07/10/25 15:04:
Lumbar area- Wound stable. NO discharge wound healing
Addendum entered and electronically signed by Magdalena Post MD 07/10/25 14:43:
Seen and examined the patient and agree with the plan formed by the resident.
70-year-old has been experiencing symptoms of left face and left arm issues. . He felt that he had some altered sensation on the left side of the face felt like Novocain administration. Also had some weakness in the left arm. No weakness in the
left leg speech was also slightly altered in his observation
Patient was seen in echo. He states that he feels his left arm is much improved. Face is also slightly better today. No weakness in the left leg
On examination cardiovascular system S1-S2 appreciated
Chest clear to auscultation
Abdomen soft and nontender
Left facial droop
Mild pronator drift on the left side strength is better today
No left leg weakness
CTA head and neck-calcification of the carotid bulbs and proximal internal carotid arteries bilaterally. On the right 44%. On the left 14% although subjectively appears slightly greater with. No hemodynamically significant stenosis. Normal
appearance of anterior cerebral and middle cerebral arteries. Mild focal narrowing of the P1 and P2 portions of the right ASSISTANT DEAN OF STUDENTS. No narrowing of the left ASSISTANT DEAN OF STUDENTS.
EKG-sinus rhythm no ischemia
MRI of the brain-focus of acute to subacute infarction involving the lateral right midbrain. Slightly more superiorly punctate focus of acute to subacute infarction involving the inferior and medial right thalamus
# Acute stroke in the lateral right midbrain, inferior and medial right thalamus
PT OT evaluation noted
Outpatient speech follow-up
Neurology evaluation
MRI of the brain as above
Echo done-results pending
Aspirin to be continued
Patient is refusing statin as he wants to do more research on that. He is also refusing Plavix because he has a history of severe GI bleeding in the past. Benefits of both discussed with the patient. He states that he wants to do further research
before he would take that.
# Hypertension-Lisinopril RESTART NOW
# GERD-not on medicines
# Diverticulosis
# Balance problems/uses a cane
# Posterior spinal decompression consisting of laminectomy L2, L3, L4, L5 bilateral foraminotomy, L2-3, L3-4, L4-L5 on 06/26/25
# DVT prophylaxis-Lovenox
# CODE STATUS-full code
Part of this note was created using voice recognition system. Occasional wrong word or��sound alike� substitutions may have inadvertently occurred due to the inherent limitations of voice recognition software. If noted kindly bring it to my
attention for correction.
Wait for neurology evaluation today.
Original Note:
Today's Communication/Plan
-
Brain MRI
Echo
Neurochecks
Assessment / Plan
Assessment / Plan
70-year-old male presented with complaints of altered sensation on the left side of the face and weakness of left arm
CTA head and neck-calcification of the carotid bulbs and proximal internal carotid arteries bilaterally. On the right 44%. On the left 14% although subjectively appears slightly greater with. No hemodynamically significant stenosis. Normal
appearance of anterior cerebral and middle cerebral arteries. Mild focal narrowing of the P1 and P2 portions of the right ASSISTANT DEAN OF STUDENTS. No narrowing of the left ASSISTANT DEAN [employer] STUDENTS.
EKG-sinus rhythm no ischemia
# CVA symptoms
Exam shows left facial droop; left pronator drift not present anymore
Neurochecks, NIH scale
PT OT evaluation
Neurology following
MRI of the brain, echo
Aspirin and statin per neurology
Hemoglobin A1c 5.9
Lipid profile with LDL of 149
# Hypertension-hold lisinopril for permissive hypertension in case of a CVA
# GERD-not on medicines
#-Diverticulosis
# Balance problems/uses a cane-history of L3-L4 laminectomies
# DVT prophylaxis-Lovenox
# CODE STATUS-full code
Anticipated Discharge: Within 24 hours
Subjective/Interval History
-
Date of Service: July 10, 2025
Afebrile. BP slightly on higher side.
Objective Data
-
Labs:
Laboratory Results
07/10/25
06:17
Sodium 136
Potassium 4.2
Chloride 103
Carbon Dioxide 28
BUN 18
Creatinine 1.1
Glucose 91
Calcium 9.3
Vital Signs:
Vital Signs
Temp Pulse Resp BP Pulse Ox
98.2 F 57 18 112/66 98
07/10/25 03:38 07/10/25 03:38 07/10/25 03:38 07/10/25 03:38 07/10/25 03:38
I&O
07/09/25 07/10/25 07/11/25
05:59 06:59 06:59
Intake Total 120 / 120
Balance 120 / 120
Review of Systems
-
History Source: Patient
All other systems: Reviewed and negative
Physical Exam
-
General: Well Developed and Well Nourished
Respiratory: Clear to Auscultation
Cardiac: Regular Rhythm and S1/S2
GI: Soft and Nontender
Skin: Warm and Dry
Neuro: Awake, Alert and Facial Droop (left)
Psych: Calm
Data Reviewed
-
Labs: Labs Reviewed by me, Discussed with Physician and Discussed with Patient
[2025-07-10] MEDS: LOW STRENGTH ASPIRIN 81 MG PO (08:57)
[2025-07-10] MEDS: NORCO 5/325 1 TABLET PO (09:01)
[2025-07-10 10:56] VITALS: BP 158/94; PULSE 67
[2025-07-10 10:59] VITALS: BP 158/94; PULSE 67
[2025-07-10] MEDS: VITAMIN B-12 1000 MCG PO (11:11)
[2025-07-10 11:28] VITALS: BP 143/90
--- NOTE | 2025-07-10 12:03 | PTOTSP ---
Speech-Language Assessment
Pt seen for cognitive-communication assessment given recent results of MRI (infarction). Pt scored 27/30 on Watson Cognitive Assessment Version 8.1 [place]er (normal 26 or higher). Pt's speech is 100% intelligible despite L sided facial droop.
Recommend comprehensive evaluation is completed in next level of care as assessments completed in acute care can be limited. Pt provided with outpatient speech services brochure.
1. Consideration of speech-language assessment in discharge setting
2. Speech s/o
--- NOTE | 2025-07-10 15:07 | W.PN.NEURO.1 ---
Subjective/Objective
Subjective Data
Date of Service: July 10, 2025
Objective Data
Vital Signs
Temp Pulse Resp BP Pulse Ox
36.8 C 70 18 143/90 97
07/10/25 11:28 07/10/25 11:28 07/10/25 11:28 07/10/25 11:28 07/10/25 13:58
Lab Results
07/09/25 09:39
07/10/25 06:17
Sodium 136 mmol/L (135-145) 07/10/25 06:17
Potassium 4.2 mmol/L (3.5-5.1) 07/10/25 06:17
BUN 18 mg/dl (9-20) 07/10/25 06:17
Glucose 91 mg/dl (70-99) 07/10/25 06:17
Calcium 9.3 mg/dl (8.4-10.2) 07/10/25 06:17
LDL Cholesterol, Calc 149 mg/dl 07/10/25 06:17
Vitamin B12 327 pg/ml (239-931) 07/09/25 09:39
Patient Allergies
ibuprofen Allergy (Severe, Verified 06/28/25 04:33)
Unknown
cephalexin Allergy (Verified 06/28/25 04:33)
Unknown
Cephalosporins Allergy (Verified 06/28/25 04:33)
Anaphylaxis
penicillin G Allergy (Verified 06/28/25 04:33)
Anaphylaxis
Penicillins Allergy (Verified 06/28/25 04:33)
Anaphylaxis
Sulfa (Sulfonamide Antibiotics) Allergy (Verified 06/28/25 04:33)
Unknown
sulfamethoxazole Allergy (Verified 06/28/25 04:33)
Unknown
trimethoprim Allergy (Verified 06/28/25 04:33)
Unknown
hydromorphone (From Dilaudid) Adverse Reaction (Verified 06/28/25 04:33)
unable to breathe
Past History
Past History
ED Past Medical History: CVA (July 2025) and Other (GI bleeding)
Social History
Tobacco: Non-smoker
Personal:
Medications
-
Medications:
Generic Name Dose Route Start Last Admin
Trade Name Freq PRN Reason Stop Dose Admin
Acetaminophen 650 mg 07/09/25 13:58
Acetaminophen 650 Mg Rectal Suppository RECTAL 08/06/25 13:57
Q4HPRN PRN
ROMERO, mild pain, or temp >100.4F
Acetaminophen 650 mg 07/09/25 13:58
Acetaminophen 325 Mg Tablet PO 08/06/25 13:57
Q4HPRN PRN
ROMERO, mild pain, or temp >100.4F
Hydrocodone Bitart/Acetaminophen 1 tablet 07/09/25 13:58 07/10/25 09:01
Hydrocodone 5 Mg/Acetaminophen 325 Mg Tablet PO 07/23/25 13:57 1 tablet
Q6HPRN PRN Administration
moderate pain
Hydrocodone Bitart/Acetaminophen 2 tablet 07/09/25 14:22
Hydrocodone 5 Mg/Acetaminophen 325 Mg Tablet PO 07/23/25 14:21
Q6HPRN PRN
SEVERE PAIN
Aspirin 81 mg 07/10/25 08:00 07/10/25 08:57
Aspirin 81 Mg Chewable Tablet PO 08/07/25 07:59 81 mg
DAILY LILY Administration
Atorvastatin Calcium 80 mg 07/10/25 18:00
Atorvastatin (Lipitor) 80 Mg Tablet PO 08/07/25 17:59
QPM LILY
Cyanocobalamin 1,000 mcg 07/10/25 09:45 07/10/25 11:11
Cyanocobalamin (Vitamin B-12) 500 Mcg Tablet PO 08/07/25 09:44 1,000 mcg
DAILY LILY Administration
Enoxaparin Sodium 40 mg 07/09/25 18:00 07/09/25 17:52
Enoxaparin Sodium 40 Mg/0.4 Ml Syringe SC 08/06/25 17:59 40 mg
QPM LILY Administration
Polyethylene Glycol 17 grams 07/10/25 08:00 07/10/25 09:02
Polyethylene Glycol Powder 17 Grams Packet PO 08/07/25 07:59 Not Given
DAILY LILY
Sodium Chloride 0 flush 07/09/25 15:00
Sodium Chloride 0.9% (Flush) Syringe IV 08/06/25 14:59
PER PROTOCOL LILY
--- NOTE | 2025-07-10 15:24 | W.PN.NEURO.1 ---
Addendum entered and electronically signed by Jaime Gaspar MD 07/10/25 16:57:
Studies reviewed.
I have personally examined the patient. I reviewed and agree with the HEAD AND NECK SURGEON's Note.
My addenda:
Awake, alert, interactive. No acute distress.
Speech intact.
No tremor.
Extra-ocular movements grossly intact.
Facial movements full and symmetric. Hearing intact to normal conversational volume.
Normal UE movements bilaterally.
Neck: full ROM.
Chest: no dyspnea
Heart: no JVD
Ext: (-) Clubbing, (-) Cyanosis, (-) Edema
IMPRESSIONS/RECOMMENDATIONS:
Abrupt onset of right midbrain secondary to right posterior cerebral artery focal narrowing
Provide 21 days of combined aspirin and clopidogrel therapy followed by aspirin therapy alone
Initiate atorvastatin due to elevated LDL
Initiate cyanocobalamin, B12 level is less than 400
Patient has already been evaluated by rehabilitation therapists
Goal of normotension
Provide medical educational materials
D/W patient / family / nursing
All questions answered.
Will continue to follow as needed.
Original Note:
Documented by User: Joanie Nunez NP 07/10/25 15:42
Today's Communication / Plan
-
.
Neuro Assessment/Plan
Assessment
The is a 70-year-old male who presented to [facility] on 07/09/25 with report of left-sided weakness and dysarthria. The patient had a recent spinal surgery done on June,.
-CT head 07/09/25: No evidence of acute intracranial abnormality. ASPECT score: 10.
-CTA head/neck 07/09/25: Calcification of the carotid bulbs and proximal internal carotid arteries bilaterally. On the right, measured diameter reduction of 44%, likely not hemodynamically significant. On the left, measured diameter reduction of 14%,
although subjectively appears slightly greater then this measurement. However, measurement and subjective assessment suggest that there is no hemodynamically significant stenosis. Normal appearance of the anterior cerebral and middle cerebral
arteries. Mild focal narrowing at the junction of the P1 and P2 portions of the right posterior cerebral artery. No significant narrowing of the left posterior cerebral artery.
-CT brain perfusion 07/09/25: CBF 0ml, Tmax 0mg.
-MRI Brain 07/10/25: There is a focus of acute to subacute infarction involving the lateral right midbrain. Slightly more superiorly, punctate focus of acute to subacute infarction involving the inferior and medial right thalamus.
I. Acute-subacute right lateral midbrain and medical right thalamus ischemic infarct; etiology of stroke is likely small vessel disease in the setting of R P1-P2 junctional narrowing.
II. HTN.
III. HLD.
Plan
-Continue aspirin 81mg and clopidogrel 75mg daily for 21 days. After 21 days, stop clopidogrel and continue aspirin 81mg daily indefinitely.
-Goal normotension.
-LDL goal <70. LDL is 149. Continue newly initiated atorvastatin 80mg daily.
-Goal normoglycemia, hbA1c is 5.9.
-NIHSS and neurological checks per unit guidelines.
-Provide patient with a stroke education packet.
-PT/OT/ST evaluations.
-DVT prophylaxis.
-Vitamin B12 level is low at 327, goal >400. Continue newly initiated cyanocobalamin 1000mcg daily.
-Follow-up with Neurology as an outpatient.
Neurology will sign-off, please contact our Neurology service with any questions/concerns.
Subjective/Objective
Subjective Data
Date of Service: July 10, 2025
No acute events overnight.
Objective Data
Vital Signs
Temp Pulse Resp BP Pulse Ox
98.2 F 70 18 143/90 97
07/10/25 11:28 07/10/25 11:28 07/10/25 11:28 07/10/25 11:28 07/10/25 13:58
Lab Results
07/09/25 09:39
07/10/25 06:17
Sodium 136 mmol/L (135-145) 07/10/25 06:17
Potassium 4.2 mmol/L (3.5-5.1) 07/10/25 06:17
BUN 18 mg/dl (9-20) 07/10/25 06:17
Glucose 91 mg/dl (70-99) 07/10/25 06:17
Calcium 9.3 mg/dl (8.4-10.2) 07/10/25 06:17
LDL Cholesterol, Calc 149 mg/dl 07/10/25 06:17
Vitamin B12 327 pg/ml (239-931) 07/09/25 09:39
Patient Allergies
ibuprofen Allergy (Severe, Verified 06/28/25 04:33)
Unknown
cephalexin Allergy (Verified 06/28/25 04:33)
Unknown
Cephalosporins Allergy (Verified 06/28/25 04:33)
Anaphylaxis
penicillin G Allergy (Verified 06/28/25 04:33)
Anaphylaxis
Penicillins Allergy (Verified 06/28/25 04:33)
Anaphylaxis
Sulfa (Sulfonamide Antibiotics) Allergy (Verified 06/28/25 04:33)
Unknown
sulfamethoxazole Allergy (Verified 06/28/25 04:33)
Unknown
trimethoprim Allergy (Verified 06/28/25 04:33)
Unknown
hydromorphone (From Dilaudid) Adverse Reaction (Verified 06/28/25 04:33)
unable to breathe
LDL Level: >70, statin ordered
Modified Rah Score (MRS)
-
Modified [place] Scale (mRS): No significant disability. Able to carry out usual activities.
Score: 1
Data Reviewed
-
CT-A: Report Reviewed
MRI Head: Report Reviewed and Image Reviewed
Labs: Report Reviewed
Lipid Profile: Report Reviewed
HgbA1C: Report Reviewed
Reviewed with: Physician, Patient and Family
Medications
-
Active Medications
Generic Name Dose Route Start Last Admin
Trade Name Freq PRN Reason Stop Dose Admin
Acetaminophen 650 mg 07/09/25 13:58
Acetaminophen 650 Mg Rectal Suppository RECTAL 08/06/25 13:57
Q4HPRN PRN
ROMERO, mild pain, or temp >100.4F
Acetaminophen 650 mg 07/09/25 13:58
Acetaminophen 325 Mg Tablet PO 08/06/25 13:57
Q4HPRN PRN
ROMERO, mild pain, or temp >100.4F
Hydrocodone Bitart/Acetaminophen 1 tablet 07/09/25 13:58 07/10/25 09:01
Hydrocodone 5 Mg/Acetaminophen 325 Mg Tablet PO 07/23/25 13:57 1 tablet
Q6HPRN PRN Administration
moderate pain
Hydrocodone Bitart/Acetaminophen 2 tablet 07/09/25 14:22
Hydrocodone 5 Mg/Acetaminophen 325 Mg Tablet PO 07/23/25 14:21
Q6HPRN PRN
SEVERE PAIN
Aspirin 81 mg 07/10/25 08:00 07/10/25 08:57
Aspirin 81 Mg Chewable Tablet PO 08/07/25 07:59 81 mg
DAILY LILY Administration
Atorvastatin Calcium 80 mg 07/10/25 18:00
Atorvastatin (Lipitor) 80 Mg Tablet PO 08/07/25 17:59
QPM LILY
Cyanocobalamin 1,000 mcg 07/10/25 09:45 07/10/25 11:11
Cyanocobalamin (Vitamin B-12) 500 Mcg Tablet PO 08/07/25 09:44 1,000 mcg
DAILY LILY Administration
Enoxaparin Sodium 40 mg 07/09/25 18:00 07/09/25 17:52
Enoxaparin Sodium 40 Mg/0.4 Ml Syringe SC 08/06/25 17:59 40 mg
QPM LILY Administration
Polyethylene Glycol 17 grams 07/10/25 08:00 07/10/25 09:02
Polyethylene Glycol Powder 17 Grams Packet PO 08/07/25 07:59 Not Given
DAILY LILY
Sodium Chloride 0 flush 07/09/25 15:00
Sodium Chloride 0.9% (Flush) Syringe IV 08/06/25 14:59
PER PROTOCOL LILY
Home Medications
�Medication �Instructions �Recorded
Curcumin 2 dose PO DAILY Supplement 06/21/25
Held on 06/27/25.
Instructions: Resume on
07/03/25.
calcium carbonate (Tums) 300 mg PO BID Supplement 06/21/25
acetaminophen 325 mg tablet 650 mg (2 x 325 mg) PO Q6HPRN PRN 06/27/25
(Tylenol) mild pain #60 tabs
hydrocodone 5 mg-acetaminophen 325 1 - 2 tab PO Q6H PRN 06/27/25
mg tablet moderate-severe pain #30 tabs
lisinopril 30 mg tablet 30 mg PO HS Blood Pressure 07/10/25

Documented by User: Jaime Gaspar MD 07/10/25 16:55
Modified [place] Score (MRS)
-
Score: 1
[2025-07-10 15:25] VITALS: BP 140/89
--- NOTE | 2025-07-10 16:19 | W.DCSUMMARY ---
Discharge Summary
Discharge Data
Date of Admission: 07/09/25
Date of Discharge: 07/10/25
-
Pending Results: No
Hospital Course
Discharging Physician : Lnodon Tan MD ; Magdalena Post MD
Disposition : Home
Primary care physician : Wanda Leon
Principal Discharge diagnosis : Acute stroke in the lateral right midbrain, inferior and medial right thalamus
Chronic Discharge diagnosis : Hypertension, GERD, diverticulosis, posterior spinal decompression,
Hospital Course : 70-year-old male who began experiencing neurological symptoms starting at approximately 9:00 PM 07/08/2025. Initially, he noticed a peculiar sensation deb to 'blowing air' on his left cheek, describing it as similar to the
sensation following novocaine administration. Subsequently, he observed weakness in his left arm, describing issues with movement, requiring observation to initiate action. The patient did not report any issues with his left leg, despite a recent
spinal surgery performed by Dr. Mauro. He also noted that his speech sounded altered to him.
During initial examination, the patient exhibited weakness on the left side of his face and a diminished sensation near the ear. Neurological assessments revealed 3/5 strength in the left upper extremity and 4+/5 in the left lower extremity, with
minimal dysarthria. This improved with time. A CAT scan was done which did not show any acute abnormality. Perfusion study was also performed with results as below. Stroke alert was called in and patient was evaluated by the neurology.
CTA of the head did not show any large vessel occlusion. MRI brain and echocardiogram was also done the next day with noted below. Upon the initial evaluation of the neurology patient was not a candidate for intravenous thrombolytic therapy
because he was out of the time window. He also had recent major surgery. Decision was made regarding the use of aspirin, Plavix as well as atorvastatin 40 mg daily however patient was very reluctant to use any new oral medications.
Patient was evaluated by physical therapy, Occupational Therapy as well as speech therapy. It was recommended that patient receive speech evaluation after discharge as well. A prescription was provided to the patient.
Her home medication including lisinopril was placed on hold initially and was later resumed.
After brain MRI, echo and neurological evaluation patient was discharged in stable condition. Advised to follow-up with outpatient family doctor within 1 week.
Per the recommendation of neurology patient was also made aware of taking Plavix in addition to aspirin for at least 21 days and then continue aspirin. Also advised to take atorvastatin 80 mg daily with goal of LDL less than 70. Patient refused to
take statin as well as Plavix. He was advised if he changes mind he should get a prescription from the family doctor. Prescription for aspirin was sent to the pharmacy. His vitamin B12 level was also found to be low and he was started on the
supplement. Prescription was sent upon discharge.
Return precautions including any worrisome concerns reviewed with the patient.
Important imaging findings : CT BRAIN PERF STROKE ALERTA
CT brain perfusion examination was performed with intravenous contrast. Automatic exposure control radiation dose reduction technology was utilized.
Quantitative and qualitative perfusion maps were produced using RAPID software and are available for review in the [facility] PACS.
CBF <30% Volume: 0 cc (estimate of ischemic core)
Tmax >6 second Volume: 0 cc (critically hypoperfused tissue)
CBF/Tmax Mismatch Volume: 0 (ischemic penumbra)
CBF/Tmax Mismatch Ratio: None
Hypoperfusion Index (Tmax >10s/Tmax >6s): Not applicable (predicts rate of collateral flow, infarct growth, and clinical outcome)
CBV Index (rCBV in Tmax >6s): 0
CT HEAD STROKE ALERT W/o Cont
no acute intracranial abnormality.
CT HEAD/NECK ANG STROKE ALERT
Calcification of the carotid bulbs and proximal internal carotid arteries bilaterally. On the right, measured diameter reduction of 44%, likely not hemodynamically significant.
On the left, measured diameter reduction of 14%, although subjectively appears slightly greater then this measurement. However, measurement and subjective assessment suggest that there is no hemodynamically significant stenosis.
Normal appearance of the anterior cerebral and middle cerebral arteries.
Mild focal narrowing at the junction of the P1 and P2 portions of the right posterior cerebral artery. No significant narrowing of the left posterior cerebral artery.
Percent stenosis is calculated using NASCET criteria.
If the patient has emphysema, patient should be assessed for an annual low dose lung cancer CT program, as pulmonary emphysema is an independent risk factor for lung cancer.
MR Brain Without Contrast
There is a focus of acute to subacute infarction involving the lateral right midbrain. Slightly more superiorly, punctate focus of acute to subacute infarction involving the inferior and medial right thalamus.
Procedure findings : TRANSTHORACIC ECHOCARDIOGRAM REPORT
SUMMARY
1. Normal biventricular size and function without regional wall motion abnormalities.
2. LVEF is 63% by Huerta's biplane method of discs. Normal diastolic function.
3. No significant valvular disease. Normal estimated PASP at 29 mmHg.
4. No prior study available for comparison.
Discharge Plan
-
Patient Disposition: Home (Routine Discharge)
Discharge Diagnosis/Procedures: Acute stroke in the lateral right midbrain, inferior and medial right thalamus
Hypertension, GERD, diverticulosis, posterior spinal decompression,
Condition: Fair
Diet: Low Fat
Activity: No restrictions
Driving Restrictions: As prior to admission
Bathing Restrictions: None
Instructions: Stroke (DC)
Referrals:
Dalton Cooper MD [Active, Neurology] - in one to two weeks
Wanda Leon MD [Family Provider, Family Practice] - in less than 1 week
Additional Discharge Medication Instructions: Outpatient speech evaluation is recommended and a script is provided with this paperwork
Take aspirin 81 mg 1 tablet by mouth daily
You should also take atorvastatin 80 mg 1 tablet at bedtime daily. Your goal LDL is less than 70
You should be on Plavix 75 mg 1 tablet by mouth daily for at least 21 days along with aspirin 81 mg. After 21 days you should continue aspirin. If you elect to start these medication please reach out to your family doctor to obtain a prescription
Take vitamin B12 1000 mcg by mouth daily
Please follow-up with [facility] neurology department as an outpatient
Prescriptions:
New
atorvastatin 80 mg Tablet
80 mg PO QPM Qty: 30 0RF
cyanocobalamin (vitamin B-12) 500 mcg Tablet
1,000 mcg PO DAILY Qty: 30 0RF
aspirin 81 mg Tablet,Chewable
81 mg PO DAILY Qty: 30 0RF
Continued
Tums 300 mg (750 mg) Tablet,Chewable
300 mg PO BID
Curcumin
2 dose PO DAILY
hydrocodone-acetaminophen 5-325 mg tablet
1 - 2 tab PO Q6H PRN (Reason: moderate-severe pain) Qty: 30 0RF
Rx Instructions:
1 tab for moderate pain, 2 if severe.
Dx lami
acetaminophen [Tylenol] 325 mg Tablet
650 mg PO Q6HPRN PRN (Reason: mild pain) Qty: 60 0RF
Rx Instructions:
DO NOT exceed >3000 mg daily while on [place].
1 [place] tab = 325 mg of Tylenol.
lisinopril 30 MG tablet
30 mg PO HS
Rx Instructions:
HOLD IF systolic blood pressure <130 while on post-surgical narcotics.
Discharge Orders:
Discharge Patient (As Directed); Ordered 07/10/25
Ordered By: London Tan
Discharge Date and Time
Print Language: AUSTRALIAN
--- NOTE | 2025-07-10 16:45 | CM ---
MDS enter order for discharge.
UR notified that patient changed to IMM .IMM reviewed with patient .
Pt said he is ready for discharge today .
[facility]otus will drive him home today .
Pt given out pt speech # to set up speech [phone]
PLAN Home with out pt speech
== END 2025-07-10 18:42 | disposition home or self-care (01) | DRG 66 ==
LOC: 4 EAST ACU 13:43
PROVIDERS: ADMITTING PHYSICIAN Hospitalist; CONSULT PHYSICIAN Psychiatry & Neurology Neurology; EMERGENCY PHYSICIAN Emergency Medicine; FAMILY PHYSICIAN Family Medicine
DX: I63.9 Cerebral infarction, unspecified (principal); I10 Essential (primary) hypertension; K21.9 Gastro-esophageal reflux disease without esophagitis; K57.30 Diverticulosis of large intestine without perforation or abscess without bleeding; Z79.82 Long term (current) use of aspirin; R29.704 NIHSS score 4; Z79.02 Long term (current) use of antithrombotics/antiplatelets; Z79.899 Other long term (current) drug therapy
CPT/HCPCS: 0042T; 70450; 70496; 70498; 70551; 80048; 80053; 80061; 82607; 82962; 83036; 83735; 85025; 92523; 92610; 93005; 93306; 97116; 97163; 97167; 99285; Q9967

== ENCOUNTER 2025-08-04 12:00 | Outpatient (RCR) | payer MEDICARE, OTHER, SELFPAY | END 2025-08-04 23:59 | disposition home or self-care (01) | LOC: ROT 12:00 | PROVIDERS: ATTENDING PHYSICIAN Physician Assistant Medical; FAMILY PHYSICIAN Family Medicine | DX: I69.354 Hemiplegia and hemiparesis following cerebral infarction affecting left non-dominant side (principal); I69.328 Other speech and language deficits following cerebral infarction; M48.062 Spinal stenosis, lumbar region with neurogenic claudication; I69.392 Facial weakness following cerebral infarction; R29.898 Other symptoms and signs involving the musculoskeletal system; R53.1 Weakness; Z73.6 Limitation of activities due to disability; Z98.890 Other specified postprocedural states; R13.12 Dysphagia, oropharyngeal phase | CPT/HCPCS: 92507; 92522; 92526; 92610; 97110; 97112; 97163; 97167; 97530 ==

== ENCOUNTER 2025-09-05 08:23 | Outpatient (RCR) | payer MEDICARE, OTHER, SELFPAY | END 2025-09-05 23:59 | disposition home or self-care (01) | LOC: ROT 08:23 | PROVIDERS: ATTENDING PHYSICIAN Physician Assistant Medical; FAMILY PHYSICIAN Family Medicine | DX: I69.354 Hemiplegia and hemiparesis following cerebral infarction affecting left non-dominant side (principal); I69.328 Other speech and language deficits following cerebral infarction; M48.062 Spinal stenosis, lumbar region with neurogenic claudication; I69.392 Facial weakness following cerebral infarction; R29.898 Other symptoms and signs involving the musculoskeletal system; Z73.6 Limitation of activities due to disability; R13.12 Dysphagia, oropharyngeal phase; R53.1 Weakness; Z98.890 Other specified postprocedural states | CPT/HCPCS: 97110; 97112; 97116; 97530 ==